=== PATIENT | female | born 1990 | race Caucasian/White ===

== ENCOUNTER 2025-03-27 15:22 | Outpatient (AMB) | payer BC, SELFPAY ==
[2025-03-27 15:47] VITALS: BP 102/69; PULSE 77; RESP 18; TEMP 36.7; O2SAT 98; BMI 31.5
--- NOTE | 2025-03-27 15:47 | GYNCLNT_ITS ---
Vital Signs 03/27/25 15:47 Height 1.5 m Height Method Stated Weight 70.76 kg Weight Measurement Method Standing Scale BMI 31.5 BP 102/69 Blood Pressure Source Automatic Cuff Blood Pressure Location Right Upper Arm Position Sitting Respiration 18 Pulse 77 Pulse Source Monitor Temp 98.1 F Temp Source Temporal Artery Scan Pulse Oximetry (%) 98 Oxygen Delivery Method Room Air Allergies/Home Meds Allergies & Medications Allergies No Known Allergies Allergy (Verified 03/27/25 15:48) Medication Reconciliation No Known Home Medications 03/27/25 [History Confirmed 03/27/25] Intake Visit Data Collection New Patient or Established: New Patient (never been to [facility]) Reason for Visit:: REFERRAL OVARIAN CYST Seen by Clinical Staff ONLY (RN/MA): No Emission Technician Required: No Do You Feel Safe at Home: Yes Authorities Contacted: N/A PCP or OBGYN visit in last 3 months: No Hx Now: No Are you currently on any form of Control: No Last menstrual period: 03/11/25 Pain Present Currently: Yes Pain Scale Used: Chavarria-Zhang/Numerical Pain scale:: 0 Smoking Status Smoking Status: Never smoker Immunizations Flu Vaccine in the Last 12 Months: No Flu Vaccine Exclusion Criteria: No Exclusion Criteria [employer] history In[employer] History Menstrual regularity: irregular Flow: normal Monthly: Yes How many days does period last: 7 Age at menarche: 11 Currently sexually active: Yes Questionnaires Covid-19 Vaccine Questionnaire Has patient been vacinated for Covid-19 Have you been vacinated for Covid-19: No PHQ-9 PHQ-2 Over the last 2 weeks, how often have you been bothered by any of the following problems? 1. Little interest or pleasure in doing things: not at all 2. Feeling down, depressed, or hopeless: not at all Total score: 0 PHQ-9 3. Trouble falling or staying asleep, or sleeping too much: Not at all 4. Feeling tired or having little energy: Not at all 5. Poor appetite or overeating: Not at all 6. Feeling bad about yourself - or that you are a failure or have let yourself or your family down: Not at all 7. Trouble concentrating on things, such as reading the newspaper or watching television: Not at all 8. Moving or speaking so slowly that other people could have noticed? - Or the opposite - being so fidgety or restless that you have been moving around a lot more than usual: not at all 9. Thoughts that you would be better off or of hurting yourself in some way: Not at all Total score: 0 If you checked off any problems, how difficult have these problems made it for you to do your work, take care of things at home, or get along with other people?: not difficult at all Source: Developed by Drs. Mikel Parmar, Ada Loredo, Víctor Tellez and colleagues, with an educational brian from [employer]. Depression screen completed yes Social History Living Situation History Marital Status: Lives With: Family Housing: House Tobacco History Smoking Status: Never smoker Second Hand Smoke Exposure: No Alcohol History Alcohol Intake: Never Domestic Abuse History Do You Feel Safe at Home: Yes History of Present Illness HPI Narrative Consultation for possible ovarian cyst, 9 out of 10 pelvic pain, irregular bleeding with period lasting 19 days three months ago, pressure and discomfort for the past two days Maura Connelly is a 34-year-old woman presenting for consultation regarding a possible ovarian cyst with associated pelvic pain and irregular bleeding. She reports a history of left ovarian cysts dating back to age 21 when she was , at which time she experienced pains and was aware of cysts in her left ovary. Since then, she has experienced ongoing uncomfortable inflammation, back pain, side pain, and pressure, with symptoms relieved by pressing on her stomach. Three months ago, she began experiencing bleeding with her period lasting 19 days, prompting her to seek gynecologic care and undergo vaginal ultrasound. She describes her current pain as 9 out of 10 in severity with an intermittent pattern where the pain goes away and comes back. For the past two days, she has felt pressure and discomfort. The patient has three children, all delivered vaginally, with her youngest being 30 years old and older children being 20 and 19 years old. She reports no complications during deliveries including no bad tears or vacuum use. She denies discharge, fever, or pain during intercourse. Medical History: - Left ovarian cysts since age 21 Obstetric History: - GTPAL: G3 T3 L3 - Three children delivered via spontaneous vaginal delivery - No significant tears or vacuum assistance during deliveries - First occurred when patient was 21 years old Diagnostic Test Results and Labs: - Vaginal ultrasound (January 2024): Left ovarian complex cyst 4.6 cm - MRI: Normal appearance of uterus and ovaries, small Nabothian cysts at the cervix, no other abnormalities noted Exam General General Appearance: alert, in no apparent distress and healthy appearing Head Head exam: atraumatic Neck Neck exam: Present normal inspection and trachea midline Chest Chest inspection: Present normal inspection and symmetric chest wall rise External exam: Present normal external exam; Absent tenderness Neuro Neurological exam: Present oriented X3 Psych Psychiatric exam: Present normal affect and normal mood Office Procedures [facility] LOC & Office Proc's Nursing/Assessment Patient Status: Initial/New Patient OB Clinic Nursing Assessment: Medication Reconciliation, Update PMH in EMR and Vital Signs OB Clinic Coordination of Care: Complex Care and Chronic Disease 1-5, Education Complex Pt/Fam, Consent,records obtained, informed consent, 1 Ins Authorization, Lab and Imaging orders, Results/Orders obtained and Staff clarify orders New Patient Charge New Patient Point Assignment: 1124 New Patient Point Charge: CERTIFIED MEDICAL ASST Level 4 ([id number]) Assessment & Plan Diagnosis / Problem List (1) Nabothian cyst: Status: Acute (2) Left ovarian cyst: Status: Acute Plan Left ovarian complex cyst Assessment: Patient has a 4.6 centimeter left-sided ovarian cyst identified on ultrasound that was not visualized on MRI. The cyst has been present since age 21 during and has been associated with chronic pelvic pain, back pain, side pain, and pressure symptoms. Recent ultrasound was performed in January. The cyst can cause pain and pressure symptoms but should not cause cycle abnormalities. Surgery would be indicated if the cyst grows above 5-10 centimete rs. Current size warrants continued monitoring with repeat imaging. Plan: - Repeat ultrasound in April to assess cyst progression - If cyst persists, consider laparoscopic procedure for removal - Follow-up appointment in one month for left ovarian cyst monitoring Irregular menstrual bleeding Assessment: Patient experienced a prolonged 19-day menstrual period three months ago, which represents abnormal uterine bleeding. MRI showed normal appearance of uterus and ovaries. The irregular periods require evaluation as they are not explained by the ovarian cyst, which typically does not cause cycle abnormalities. Plan: - Order blood work to check hormone levels - Patient instructed to call if prolonged period occurs again Cervical Nabothian cysts Assessment: MRI findings revealed a few small Nabothian cysts at the cervix. These are benign air bubbles in cervical tissue that are common in women above age 30 and generally do not cause symptoms. Plan: - No specific intervention required as these are benign and asymptomatic
== END 2025-03-27 16:06 | disposition home or self-care (01) ==
LOC: HODSOBC 15:22
PROVIDERS: PCP Nurse Practitioner Family; Referring Provider Nurse Practitioner Family; Supervising Provider Obstetrics & Gynecology; Visit Provider Obstetrics & Gynecology
DX: N88.8 Other specified noninflammatory disorders of cervix uteri (principal); N83.292 Other ovarian cyst, left side; N93.9 Abnormal uterine and vaginal bleeding, unspecified
CPT/HCPCS: 99204; G0463